=== PATIENT | male | born 1985 | race Two or more races ===

== ENCOUNTER 2022-02-13 22:56 | Emergency (ER) | payer BC ==
[2022-02-13 23:50] LABS: BLOOD UREA NITROGEN,BUN 14 mg/dL (7.0-18.0); CHLORIDE,CL 99 mmol/L (98-107); GLUCOSE RANDOM 114 mg/dL (74-106); POTASSIUM,K 3.5 mmol/L (3.5-5.1); SODIUM,NA 136 mmol/L (136-148)
[2022-02-14] MEDS ORDERED: ALPRAZolam 0.5 MG Tab PO STA (01:16)
== END 2022-02-14 01:34 | disposition home or self-care (01) ==
LOC: MW.ED 22:56
DX: R51.9 Headache, unspecified (principal); R25.1 Tremor, unspecified; M62.48 Contracture of muscle, other site
CPT/HCPCS: 36415; 70450; 71045; 80053; 80305; 81001; 83735; 84484; 85025; 93005; 99284; A9270

== ENCOUNTER 2025-01-24 14:18 | Emergency (ER) | payer BC ==
[2025-01-24] MEDS: Sodium Chloride 0.9% 1,000 ML IV ONE (15:08)
[2025-01-24] MEDS: Ketorolac 30 MG/ML SDV IVPUSH ONE (15:09)
[2025-01-24] MEDS: Ondansetron 4 MG/2 ML SDV IVPUSH ONE (15:09)
[2025-01-24] MEDS: diphenhydrAMINE 50 MG/ML SDV IVPUSH ONE (15:10)
[2025-01-24] MEDS: Metoclopramide 10 MG/2 ML SDV IV ONE (15:10)
[2025-01-24 15:20] LABS: BASOPHILS ABSOLUTE AUTO 0.04 K/uL (0.00-0.20); BASOPHILS PERCENT AUTO 1.2 % (0.0-1.0); EOSINOPHILS ABSOLUTE AUTO 0.02 K/uL (0.00-0.45); EOSINOPHILS PERCENT AUTO 0.6 % (0.0-6.0); HEMATOCRIT 40.4 % (42.0-52.0); LYMPHOCYTES ABSOLUTE AUTO 0.83 K/uL (1.00-4.80); LYMPHOCYTES PERCENT AUTO 25.6 % (24.0-44.0); MEAN CORPUSCULAR HEMOGLOBIN 34.5 pg (28.0-32.0); MEAN CORPUSCULAR HGB CONC 37.1 g/dL (32.0-36.0); MEAN CORPUSCULAR VOLUME 92.9 fL (83.0-99.0); MEAN PLATELET VOLUME 10.2 fL (9.4-12.4); MONOCYTES ABSOLUTE AUTO 0.29 K/uL (0.00-0.80); NEUTROPHILS ABSOLUTE AUTO 2.06 K/uL (1.80-7.70); NEUTROPHILS PERCENT AUTO 63.6 % (41.0-71.0); PLATELET COUNT,PLT 285 K/uL (150-400); RED BLOOD CELL COUNT 4.35 M/uL (4.52-5.90); WHITE BLOOD CELL COUNT,WBC 3.24 K/uL (3.9-11.3)
[2025-01-24 15:41] LABS: A/G RATIO 1.2 (0.9-1.6); ALBUMIN 4.3 g/dL (3.4-5.0); BILIRUBIN TOTAL 0.9 mg/dL (0.2-1.0); CALCIUM 9.3 mg/dL (8.5-10.1); CARBON DIOXIDE,CO2 27.7 mmol/L (21.0-32.0); EST CRCL DRUG DOSING (CG) 81.4 mL/min; POTASSIUM,K 3.6 mmol/L (3.5-5.1)
== END 2025-01-24 16:40 | disposition home or self-care (01) ==
LOC: MW.ED 14:18
DX: G43.909 Migraine, unspecified, not intractable, without status migrainosus (principal); Z79.899 Other long term (current) drug therapy
CPT/HCPCS: 36415; 70450; 80053; 85025; 93005; 96361; 96374; 96375; 99284; J1200; J1885; J2405; J2765; J7030